=== PATIENT | female | born 1960 | race African-American/Black ===

== ENCOUNTER 2017-05-18 16:48 | Emergency (ER) | payer MEDICARE, MEDICAID ==
[~2017-05-18] VITALS: Ht 177.8 cm; Wt 141.0 kg
[~2017-05-18 16:48] MED LIST: ALLO100T PO; BUPR100T4 PO; DIAZ10TA PO; GABA300T25 PO; NORVASC; SOMA PO; VIC PO
[2017-05-18 17:11] VITALS: BP 132/74
== END 2017-05-18 20:44 | disposition left against medical advice (07) ==
LOC: ER 16:48
DX: Z53.21 Procedure and treatment not carried out due to patient leaving prior to being seen by health care provider (principal)

== ENCOUNTER 2019-03-16 13:15 | Emergency (ER) | payer MEDICARE, MEDICAID ==
[~2019-03-16] VITALS: Ht 177.8 cm; Wt 150.0 kg
[~2019-03-16 13:15] MED LIST changes: -ALLO100T PO; +AMLO10TA80 PO; -BUPR100T4 PO; -DIAZ10TA PO; +FAMO40TA7 MT; +FERR140T2 MT; +GABA-531 PO; -GABA300T25 PO; +HYDR-4009 PO; +LOSA25TA26 PO; -NORVASC; +OXYB5TAB11 MT; -VIC PO; +VITA2500 PO
[2019-03-16] MEDS ORDERED: IBUPROFEN 400MG TABLET PO ONE (14:15)
[2019-03-16 16:15] VITALS: BP 184/95
== END 2019-03-16 16:16 | disposition home or self-care (01) ==
LOC: ER 13:15
DX: S16.1XXA Strain of muscle, fascia and tendon at neck level, initial encounter (principal); S09.8XXA Other specified injuries of head, initial encounter; S93.402A Sprain of unspecified ligament of left ankle, initial encounter; M47.892 Other spondylosis, cervical region; I10 Essential (primary) hypertension; W18.12XA Fall from or off toilet with subsequent striking against object, initial encounter; Y93.89 Activity, other specified; Y92.018 Other place in single-family (private) house as the place of occurrence of the external cause; E66.9 Obesity, unspecified; Z68.42 Body mass index [BMI] 45.0-49.9, adult
CPT/HCPCS: 72170; 73610; 93005; 99284

== ENCOUNTER 2019-04-30 22:35 | Emergency (ER) | payer MEDICARE, MEDICAID ==
[~2019-04-30] VITALS: Ht 177.8 cm; Wt 149.0 kg
[2019-05-01 01:28] LABS: BASOPHILS % 0.8 % (0.0-2.0); EOSINOPHILS % 2.1 % (0.0-5.0); HEMATOCRIT. 37.1 % (36.0-48.0); HEMOGLOBIN. 12.3 g/dL (12.0-16.0); LYMPHOCYTES % 23.5 % (20.0-50.0); MEAN CORPUSCULAR HEMOGLOBIN 28.4 pg (28.0-32.0); MEAN CORPUSCULAR VOLUME 85.7 fL (81.0-99.0); MEAN PLATELET VOLUME 8.4 fl (7.4-10.4); MONOCYTES % 6.9 % (2.0-8.0); NEUTROPHILS % 66.7 % (40.0-76.0); PLATELET 201 x1000/uL (130-400); RED BLOOD CELL COUNT 4.33 mill/uL (4.2-5.4); RED CELL DISTRIBUTION WIDTH 15.7 % (11.6-14.6)
[2019-05-01 01:34] LABS: CHLORIDE 108 mEq/L (98-107)
[2019-05-01] MEDS ORDERED: KETOROLAC 30MG/ML VIAL IV STA (02:55)
[2019-05-01 08:30] LABS: CLARITY URINE CLOUDY (CLEAR); COLOR URINE YELLOW (YELLOW); KETONES URINE TRACE (NEGATIVE); LEUKOCYTE ESTERASE URINE 1+ (NEGATIVE); NITRITE URINE POSITIVE (NEGATIVE); OCCULT BLOOD URINE TRACE (NEGATIVE); PROTEIN URINE NEGATIVE (NEGATIVE); SPECIFIC GRAVITY URINE 1.024 (1.005-1.030); UROBILINOGEN URINE 0.2 E.U./dL (0.2-1.0)
[2019-05-01 10:47] VITALS: BP 140/75
== END 2019-05-01 10:40 | disposition home or self-care (01) ==
LOC: ER 22:35
DX: M71.22 Synovial cyst of popliteal space [Baker], left knee (principal); R07.9 Chest pain, unspecified; M19.90 Unspecified osteoarthritis, unspecified site; E78.00 Pure hypercholesterolemia, unspecified; I10 Essential (primary) hypertension; F17.200 Nicotine dependence, unspecified, uncomplicated; Z79.899 Other long term (current) drug therapy; Z96.643 Presence of artificial hip joint, bilateral
CPT/HCPCS: 36415; 71045; 80053; 81003; 83880; 84484; 85025; 87086; 93005; 93971; 96374; 99284; J1885

== ENCOUNTER 2019-08-08 15:36 | Inpatient (IN) | payer MEDICARE, MEDICAID ==
[~2019-08-08] VITALS: Ht 177.8 cm; Wt 163.3 kg
[2019-08-08 18:44] LABS: BASOPHILS % 1.3 % (0.0-2.0); EOSINOPHILS % 0.5 % (0.0-5.0); HEMATOCRIT. 40.2 % (36.0-48.0); HEMOGLOBIN. 13.7 g/dL (12.0-16.0); LYMPHOCYTES % 21.7 % (20.0-50.0); MEAN CORPUSCULAR HEMOGLOBIN 29.6 pg (28.0-32.0); MEAN CORPUSCULAR VOLUME 86.8 fL (81.0-99.0); MEAN PLATELET VOLUME 8.8 fl (7.4-10.4); NEUTROPHILS % 70.5 % (40.0-76.0); PLATELET 202 x1000/uL (130-400); RED BLOOD CELL COUNT 4.64 mill/uL (4.2-5.4); RED CELL DISTRIBUTION WIDTH 16.3 % (11.6-14.6)
[2019-08-08 18:49] LABS: CHLORIDE 109 mEq/L (98-107)
[2019-08-08] MEDS ORDERED: KETOROLAC 15MG/ML VIAL IV ONE (22:00)
[2019-08-08] MEDS ORDERED: SODIUM CHLORIDE 0.9% 500 ML IV ONE (22:00)
[2019-08-08] MEDS ORDERED: IOHEXOL-350 100 ML BOTTLE ONE (22:13)
[2019-08-09] MEDS ORDERED: CLINDAMYCIN HCL 150MG CAPSULE PO ONE (02:45)
[2019-08-09] MEDS ORDERED: MAGNESIUM/ALUMINUM HYDROXIDE/SIMETHICONE 30ML UDC PO PRN (03:30)
[2019-08-09] MEDS ORDERED: CLONIDINE 0.1MG TABLET PO PRN (03:30)
[2019-08-09] MEDS ORDERED: ONDANSETRON HCL 4MG/2ML INJ IV PRN (03:30)
[2019-08-09] MEDS ORDERED: LORAZEPAM 2MG/ML CPJ IV PRN (03:30)
[2019-08-09] MEDS ORDERED: ENOXAPARIN 40MG/0.4ML SYR SUBCUT SCH ×2 (03:30→09:00)
[2019-08-09] MEDS ORDERED: DOCUSATE SODIUM 100MG CAPSULE PO PRN (03:30)
[2019-08-09] MEDS ORDERED: ACETAMINOPHEN 325MG TABLET PO PRN (03:30)
[2019-08-09] MEDS ORDERED: GUAIFENESIN 200MG/10ML SUGAR FREE UDC PO PRN (03:30)
[2019-08-09] MEDS ORDERED: IPRATROPIUM/ALBUTEROL 0.5-3(2.5)MG/3ML NEB NEB PRN (03:30)
[2019-08-09 04:10] VITALS: BP 141/79
[2019-08-09] MEDS: HYDROCODONE/ACETAMINOPHEN 5/325MG TABLET PO PRN ×2 (05:02→14:23)
[2019-08-09] MEDS ORDERED: LEVOFLOXACIN 500MG PREMIX 100 ML IV SCH (06:00)
[2019-08-09 08:23] LABS: CREATINE KINASE 33 IU/L (26-192)
[2019-08-09 08:27] LABS: CREATINE KINASE MB FRACTION < 1.0 ng/mL (0.5-3.6)
[2019-08-09] MEDS ORDERED: AMLODIPINE 10MG TABLET PO SCH (09:00)
[2019-08-09 15:19] LABS: CREATINE KINASE 36 IU/L (26-192)
[2019-08-09 15:20] LABS: CREATINE KINASE MB FRACTION < 1.0 ng/mL (0.5-3.6)
[2019-08-09 16:22] VITALS: BP 154/85
== END 2019-08-09 17:58 | disposition home or self-care (01) | DRG 190 ==
LOC: ER 15:36 → 7WST 08-09 00:09 → ENRESERV 08-09 01:43 → 7WST 08-09 13:58
PROVIDERS: ADMIT Hospitalist; ATTEND Hospitalist
DX: J44.0 Chronic obstructive pulmonary disease with (acute) lower respiratory infection (principal); J18.9 Pneumonia, unspecified organism; J44.1 Chronic obstructive pulmonary disease with (acute) exacerbation; M06.9 Rheumatoid arthritis, unspecified; E78.00 Pure hypercholesterolemia, unspecified; E66.01 Morbid (severe) obesity due to excess calories; G47.33 Obstructive sleep apnea (adult) (pediatric); I10 Essential (primary) hypertension; F17.200 Nicotine dependence, unspecified, uncomplicated; Z96.649 Presence of unspecified artificial hip joint; Z86.718 Personal history of other venous thrombosis and embolism; Z79.899 Other long term (current) drug therapy
CPT/HCPCS: 36415; 71045; 71275; 82550; 82553; 83880; 84484; 93970; 96361; 96374; 99285; J1650; J1885; J1956; J7040; Q9967

== ENCOUNTER 2021-07-15 18:48 | Emergency (ER) | payer MEDICARE, MEDICAID ==
[~2021-07-15] VITALS: Ht 177.8 cm; Wt 125.0 kg
[~2021-07-15 18:48] MED LIST changes: -GABA-531 PO; +GABA-532 PO; -OXYB5TAB11 MT; +OXYB5TAB16 MT
[2021-07-15] MEDS ORDERED: NITROGLYCERIN 0.4MG TABLET SL SL PRN (23:45)
[2021-07-15] MEDS ORDERED: ACETAMINOPHEN 325MG TABLET PO ONE (23:45)
[2021-07-16 00:39] LABS: HEMATOCRIT. 36.1 % (36.0-48.0); HEMOGLOBIN. 12.4 g/dL (12.0-16.0); MEAN CORPUSCULAR HEMOGLOBIN 30.5 pg (28.0-32.0); MEAN CORPUSCULAR VOLUME 88.9 fL (81.0-99.0); MEAN PLATELET VOLUME 7.8 fl (7.4-10.4); PLATELET 189 x1000/uL (130-400); RED BLOOD CELL COUNT 4.06 mill/uL (4.2-5.4)
[2021-07-16 00:55] LABS: CHLORIDE 106 mEq/L (98-107)
[2021-07-16] MEDS ORDERED: IOHEXOL-350 100 ML BOTTLE ONE (03:35)
[2021-07-16] MEDS ORDERED: ACET-2708 MT (03:55)
[2021-07-16] MEDS ORDERED: KETOROLAC 30MG/ML VIAL IV NR (04:00)
[2021-07-16 04:41] VITALS: BP 146/74
[2021-07-16 07:22] LABS: PLATELET ESTIMATE NORMAL
== END 2021-07-16 04:20 | disposition home or self-care (01) ==
LOC: ER 18:48
DX: R06.02 Shortness of breath (principal); R05.9 Cough, unspecified; E78.00 Pure hypercholesterolemia, unspecified; I10 Essential (primary) hypertension; Z90.49 Acquired absence of other specified parts of digestive tract; Z79.899 Other long term (current) drug therapy
CPT/HCPCS: 36415; 71045; 71275; 80053; 83880; 84484; 85025; 93005; 96374; 99285; J1885; Q9967